=== PATIENT | male | born 2000 | race Asian ===

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

== ENCOUNTER 2019-07-20 23:01 | Emergency (ER) | payer OTHER ==
[2019-07-20] MEDS ORDERED: TETANUS/DIPHTHERIA/PERTUSSIS 0.5 ML SYRINGE IM ONE (23:47)
[2019-07-21] MEDS ORDERED: BUFFERED LIDOCAINE 10 ML SYRINGE SUBQ STA (00:08)
--- NOTE | 2019-07-21 00:13 | ED Physician Documentation ---
PD HPI UPPER EXT INJURY - Stated complaint Stated Complaint: LEFT HAND POINTER FINGER INJURY - Chief complaint Chief Complaint: Ext Problem - History obtained from History obtained from: Patient - History of Present Illness Location: Left, Finger (index) Where injury occurred: Work Timing - onset: Enter time (1500), Today Timing - duration: Hours Timing - details: Abrupt onset, Still present Improved by: Rest, Immobilization Worsened by: Moving, Palpating Associated symptoms: No: Weakness, Numbness, Tingling, Swelling, Discolored Contributing factors: No: Anticoagulated, Prior ortho surgery Similar symptoms before: Has not had sx before Recently seen: Not recently seen - Additonal information Additional information: 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 He has a laceration through the glove into the skin overlying the radial surface of the dorsal surface of the left index finger over the PIP joint. The laceration does not an appear to involve any deeper structures there is no evidence of foreign material in the wound or evidence of abrasive wheel burn to the tissue surface. The distal n/v is intact and the functionality is intact. Review of Systems Constitutional: denies: Fever Eyes: denies: Decreased vision Nose: denies: Congestion Respiratory: denies: Cough GI: denies: Vomiting Skin: reports: Laceration (s) PD PAST MEDICAL HISTORY - Past Medical History Past Medical History: Yes Respiratory: Pneumonia - Past Surgical History Past Surgical History: No - Present Medications Home Medications: Ambulatory Orders Medication Instructions Recorded Confirmed Acyclovir 800 mg PO 5XD 10 Days tablet 12/18/17 HYDROcod/ACETAM 5/325 [[place] 5/325] 1 - 2 ea PO Q6H PRN #14 tablet 12/18/17 - Allergies Allergies/Adverse Reactions: Allergies Allergy/AdvReac Type Severity Reaction Status Date / Time No Known Drug Allergies Allergy Verified 07/20/19 23:06 - Social History Does the pt smoke?: No Smoking Status: Never smoker Does the pt drink ETOH?: No Does the pt have substance abuse?: No - Immunizations Immunizations are current?: Yes - POLST Patient has POLST: No PD ED PE NORMAL - Vitals Vital signs reviewed: Yes (hypertensive ) - General General: Alert and oriented X 3, No acute distress, Well developed/nourished - HEENT HEENT: Atraumatic, PERRL, EOMI - Respiratory Respiratory: No respiratory distress - Derm Derm: Normal color, Warm and dry, No rash - Extremities Extremities: No deformity, No edema, Other (There is a deep abrasion through the skin to the dorso/radial aspect of the left index finger over the PIP joint. The lacreration does not inovle the tendon or nerve. There is tissue loss and there is no obvious foreign material in the laceration. I cannot see any glove fragm ents or abrasive wheel burn. ) - Neuro Neuro: Alert and oriented X 3, recreation therapy aide 2-12 intact, No motor deficit, No sensory deficit, Normal speech Eye Opening: Spontaneous Motor: Obeys Commands Verbal: Oriented GCS Score: 15 - Psych Psych: Normal mood, Normal affect Results - Vitals Vitals: Vital Signs - 24 hr // 23:06 Temperature 36.8 C Heart Rate 78 Respiratory 16 Rate Blood Pressure 180/75 H O2 Saturation 98 Oxygen O2 Source Room air - Rads (name of study) finger Radiology: Prelim report reviewed (Impression: 1. No acute fractures or malalignment. No radiopaque foreign bodies. In a splint), EMP read indepedently, See rad report Procedures - Laceration (location) left index Wound type: Curved, Irregular, Into subcut fat, Clean Neurovascular status: Sensory intact, Motor intact, Vascular intact Tendon involvement: Tendon intact Anesthesia: Lidocaine 1%, With bicarb Wound Preparation: Hibiclens, Irrigated copiously NS, Wound explored, To the base Skin layer closure: Nylon, Interrupted, Size #-0 - enter number (4-0), Sutures - enter # (6) Other: Patient tolerated well, No complications, Neurovascular intact, Dressing applied, Tetanus booster given Complexity: Simple PD MEDICAL DECISION MAKING - ED course Complexity details: reviewed results, re-evaluated patient, considered differential, d/w patient, d/w family ED course: 19-year-old male with an abrasive wheel laceration to the left index finger is sutured and splinted and will return to work with limited use of the index finger for 10 to 14 days. Departure - Departure Disposition: 01 Home, Self Care Clinical Impression: Laceration of index finger Qualifiers: Encounter type: initial encounter Damage to nail status: without damage Foreign body presence: without foreign body Laterality: left Qualified Code(s): S61.211A - Laceration without foreign body of left index finger without damage to nail, initial encounter Condition: Stable Instructions: ED Laceration Hand Follow-Up: [facility] [Provider Group] Forms: Activity restrictions
--- NOTE | 2019-07-21 00:36 | XRAY Report ---
Reason: index dorsal deep lac with tap grinder Procedure Date: 07/21/2019 Accession Number: [id number] / [id number] Procedure: XR - Finger(s) LT CPT Code: Final Report FULL RESULT: EXAM: LEFT 1st/2nd/3rd/4th/5th DIGIT RADIOGRAPHY EXAM DATE: 07/21/2019 12:01 AM. CLINICAL HISTORY: Index dorsal deep lac with tap grinder. COMPARISON: None. TECHNIQUE: 3 views. FINDINGS: Bones: Normal. No fracture or bone lesion. Joints: Normal. No subluxations. Soft Tissues: No radiopaque foreign bodies. IMPRESSION: 1. No acute fractures or malalignment. 2. No radiopaque foreign bodies. [facility]
[2019-07-21 00:54] VITALS: BP 151/74
== END 2019-07-21 01:11 | disposition home or self-care (01) ==
LOC: ED 23:01
DX: S61.211A Laceration without foreign body of left index finger without damage to nail, initial encounter (principal); W31.1XXA Contact with metalworking machines, initial encounter; Y93.89 Activity, other specified; Y92.62 Dock or shipyard as the place of occurrence of the external cause; Y99.0 Civilian activity done for income or pay; Z23 Encounter for immunization
CPT/HCPCS: 12001; 73140; 90471